=== PATIENT | male | born 1960 | race Hispanic/Latino ===

== ENCOUNTER → 2018-06-23 | Outpatient (CLI) | payer OTHER, MEDICARE ==
--- NOTE | 2018-06-23 12:23 | Diagnostic Imaging Report ---
Left Shoulder - 2 Views HISTORY: Left shoulder pain x2 months, clinical diagnosis of sprain of left coracohumeral ligament. COMPARISON: None FINDINGS: Bones No acute displaced fracture. There are old healed left posterolateral fifth and sixth rib fractures. Osseous alignment is within normal limits. Joints: There are mild left glenohumeral and acromioclavicular joint degenerative changes. Soft tissues: The soft tissues appear unremarkable. IMPRESSION: No acute radiographic abnormality. Mild left shoulder osteoarthritis. Signed by: Dr. Kelly Bolanos MD on 06/23/2018 12:20 PM
== END ==
LOC: RAD 11:18
PROVIDERS: ATTEND Internal Medicine
DX: S43.412A Sprain of left coracohumeral (ligament), initial encounter (principal)

== ENCOUNTER → 2018-07-07 | Outpatient (CLI) | payer OTHER, MEDICARE ==
[~2018-07-07] MED LIST: ASPIR 8181 MG PO; ATORVASTATIN CA20 MG PO; CLOPIDOGREL75 MG PO; FERROUS SULFAT325 MG PO; GLIPIZIDE5 MG PO; METOPROLOL SUCC25 MG PO; NIFEDICAL XL PO; VITAMIN B-121000 MC1 PO
--- NOTE | 2018-07-07 13:23 | Diagnostic Imaging Report ---
TECHNIQUE: Magnetic resonance imaging of the LEFT SHOULDER was performed WITHOUT injected contrast. HISTORY: INJURY OF MUSCLE TENDON , fell at work, landed on shoulder, limited motion, one year ago COMPARISON: Left shoulder radiographs June 23, 2018 FINDINGS: MUSCLES AND TENDONS: Rotator Cuff: Tendons: Supraspinatus and Infraspinatus: A small focal full-thickness tear of the anterior supraspinatus, without tendon retraction (series 5 image 8), adjacent to the greater tuberosity enthesophyte. The infraspinatus is intact. Teres Minor: Intact Subscapularis: Intact Muscles: No focal muscle atrophy. Biceps Tendon: The long head of the biceps tendon is within the intertubercular groove. Marked thickening, increased intrasubstance signal, and low-grade partial tearing of the intra-articular portion, most notably adjacent to the lesser tuberosity. GLENOHUMERAL JOINT: Glenoid Labrum: Mild complex tearing and attenuation of the superior labrum, including the biceps labral anchor. Articular Cartilage: Diffuse intermediate to high-grade erosion. Joint Fluid: No effusion. ACROMIOCLAVICULAR JOINT: Moderate hypertrophic degenerative changes of the acromioclavicular joint. Mild synovitis and trace effusion. BONE: The acromion is unremarkable. The bone marrow signal is heterogeneous, compatible with red marrow conversion, no specific evidence of a focal bone marrow replacing abnormality. No acute fracture. Small enthesophyte at the greater tuberosity of the humerus. SOFT TISSUES: Trace fluid within the subacromial/subdeltoid bursa, in keeping with full-thickness rotator cuff tear. Nonspecific subcentimeter axillary lymph nodes. IMPRESSION: 1. A small focal full-thickness tear involving the anterior supraspinatus tendon. 2. Severe tendinosis of the intra-articular long head of the biceps tendon, including degenerative tearing. 3. Mild degenerative tearing of the superior labrum including the biceps-labral anchor. 4. Moderate acromioclavicular and mild glenohumeral osteoarthrosis. Signed by: Pranav Bailey.Mirna., M.M.M. on 07/07/2018 1:20 PM
== END ==
LOC: MRI 09:05
PROVIDERS: ATTEND Internal Medicine
DX: S46.002D Unspecified injury of muscle(s) and tendon(s) of the rotator cuff of left shoulder, subsequent encounter (principal)

== ENCOUNTER → 2018-07-09 | Day surgery (SDC) | payer OTHER, MEDICARE ==
[~2018-07-09] MED LIST changes: +FENTANYL CITRATE/PF 100MCG/2 ML INJ ONE; +LIDOCAINE HCL 2% LOCAL INJ 5 ML SDV VIAL INJ ONE; +MIDAZOLAM HCL 2 MG/2 ML VIAL ONE; +PROPOFOL IV EMULSION 10 MG/ML 50 ML VIAL ONE; +SODIUM CHLORIDE 0.9% 500ML 500 ML ONE
--- OUTSIDE RECORDS SUMMARY | 2018-07-09 10:02 | XMS REPORT | Summary of Care ---
Author Author DUANE NEWELL M.D. Organization Unknown Address Unknown Phone Unavailable Care Team Providers Care Corporate Coordinator Name Role Phone DUANE NEWELL M.D. 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) Status: Active Medications Name Dates Details Aspirin 81 MG TABS Active Atorvastatin Calcium 40 MG Oral Tablet * Refills: 0 Active Clopidogrel Bisulfate 75 MG Oral Tablet * Refills: 0 Active Allergies and Adverse Reactions Name Dates Details No Known Allergies (Allergy) Status: Active Procedures Procedure Dates Details [facility] - Hemodialysis Access Duplex - 68929 Date: 11-May-2018 Immunization Name Dates Details Immunizations not documented Social History Name Dates Details Unknown if ever smoked Vital Signs Date Test Result Details [id number] BP Systolic 160 mm[Hg] Status: Comments: Location: E; Position: Sitting BP Diastolic 85 mm[Hg] Status: Comments: Location: [facility]; Position: Sitting Height 71 in Status: Weight 177.5 lb Status: Body Mass Index Calculated 24.76 kg/m2 Status: Body Surface Area Calculated 2 m2 Status: Temperature 97.8 f Status: Comments: Method: Oral Heart Rate 64 /min Status: O2 SAT 99 % Status: Results Date Description Value Details Results not documented Plan of Care Name Dates Details Planned Observations Planned Goals not documented Planned Encounters Appointment; DUANE NEWELL M.D. On: 20-Jul-2018 9:15 Instructions Name Dates Details Instructions not documented Encounters Appointment; [facility], [facility] Encounter Diagnosis: Problem not documented On: 13-Apr-2018 9:00 Appointment; DUANE NEWELL M.D. Encounter Diagnosis: Problem not documented On: 13-Apr-2018 13:30 Appointment; DUANE NEWELL M.D. Encounter Diagnosis: Problem not documented On: 11-May-2018 9:15 Appointment; [facility], [facility] Encounter Diagnosis: Problem not documented On: 11-May-2018 14:00 Appointment; DUANE NEWELL M.D. Encounter Diagnosis: Problem not documented On: 17-Jun-2018 9:00
--- OUTSIDE RECORDS SUMMARY | 2018-07-09 10:02 | XMS REPORT ---
Author Author [facility] Address Unknown Phone Unavailable Care Team Providers Care Claim Rep Name Role Phone Latricia GONZALEZ Unavailable Unavailable Payers Payer Name Policy Type Policy Number Effective Date Expiration Date Problems This patient has no known problems. Allergies, Adverse Reactions, Alerts Allergy Name Allergy Type Status Severity Reaction(s) Onset Date Inactive Date Treating Clinician Comments No Known Allergies DA Active U 2018-01-09 00:00:00 Medications This patient has no known medications. Results Test Description Test Time Test Comments Text Results Atomic Results Result Comments MRI SHOULDER LEFT WO 2018-07-07 13:03:00 [place] [address] Patient Name: KRISTI MEDRANO MR #: [id number] : 1960 Age/Sex: 57/M Req #: [id number] Adm Physician: Ordered by: SAL GONZALEZ MD Report #: [id number] Location: MRI Room/Bed: Procedure: [id number] MRI/MRI SHOULDER LEFT WO Exam Date: Exam Time: REPORT STATUS: Signed TECHNIQUE: Magnetic resonance imaging of the LEFT SHOULDER was pe rformed WITHOUT injected contrast. HISTORY: INJURY OF MUSCLE TENDON , fell at work, landed on shoulder, limited motion, one year ago COMPARISON: Left shoulder radiographs June 23, 2018 FINDINGS: MUSCLES AND TENDONS: Rotator Cuff: Tendons: Supraspinatus and Infraspinatus: A small focal full-thickness tear of the anterior supraspinatus, without tendon retraction (series 5 image 8), adjacent to the greater tuberosity enthesophyte. The infraspinatus is intact. Teres Minor: Intact Subscapularis: Intact Muscles: No focal muscle atrophy. Biceps Tendon: The long head of the biceps tendon is within the intertubercular groove. Marked thickening, increased intrasubstance signal, and low-grade partial tearing of the intra- articular portion, most notably adjacent to the lesser tuberosity. GLENOHUMERAL JOINT: Glenoid Labrum: Mild complex tearing and attenuation of the superior labrum, including the biceps labral anchor. Articular Cartilag e: Diffuse intermediate to high-grade erosion. Joint Fluid: No effusion. ACROMIOCLAVICULAR JOINT: Moderate hypertrophic degenerative changes of the acromioclavicular joint. Mild synovitis and trace effusion. BONE: The acromion is unremarkable. The bone marrow signal is heterogeneous, compatible with red marrow conversion, no specific evidence of a focal bone marrow replacing abnormality. No acute fracture. Small enthesophyte at the greater tuberosity of the humerus. SOFT TISSUES: Trace fluid within the subacromial/subdeltoid bursa, in keeping with full-thickness rotator cuff tear. Nonspecific subcentimeter axillary lymph nodes. IMPRESSION: 1. A small focal full-thickness tear involving the anterior supraspinatus tendon. 2. Severe tendinosis of the intra-articular long head of the biceps tendon, including degenerative tearing. 3. Mild degenerative tearing of the superior labrum including the biceps-labral anchor. 4. Moderate acromioclavicular and mild glenohumeral osteoarthrosis. Signed by: Dr. Cindy Abebe D.O., M.M.M. on 07/07/2018 1:20 PM Dictated By: CINDY ABEBE DO 1320 Transcribed By: RAMAKRISHNA on 07/07/18 1320 COPY TO: SAL GONZALEZ MD SHOULDER LEFT COMPLETE 2018-06-23 12:13:00 [place] [address] Patient Name: KRISTI MEDRANO MR #: [id number] : 1960 Age/Sex: 57/M Req #: [id number] Adm Physician: Ordered by: SAL GONZALEZ MD Report #: [id number] Location: [facility] Room/Bed: Procedure: [id number] DX/SHOULDER LEFT COMPLETE Exam Date: 06/23/18 Exam Time: 1130 REPORT STATUS: Signed Left Shoulder - 2 Views HISTORY: Left shoulder p ain x2 months, clinical diagnosis of sprain of left coracohumeral ligament. COMPARISON: None FINDINGS: Bones No acute displaced fracture. There are old healed left posterolateral fifth and sixth rib fractures. Osseous alignment is within normal limits. Joints: There are mild left glenohumeral and acromioclavicular joint degenerative changes. Soft tissues: The soft tissues appear unremarkable. IMPRESSION: No acute radiographic abnormality. Mild left shoulder osteoarthritis. Signed by: Dr. Joe Johnson MD on 06/23/2018 12:20 PM Dictated By: JOE JOHNSON MD 1220 Transcribed By: RAMAKRISHNA on 06/23/18 1220 COPY TO: SAL GONZALEZ MD
[2018-07-09 11:01] LABS: BASOPHILS % 0.3 % (0.0-1.0); EOSINOPHILS # (AUTO) 0.2 (0.0-0.4); EOSINOPHILS % 1.3 % (0.0-6.0); HEMATOCRIT 47.7 % (38.2-49.6); HEMOGLOBIN 15.3 g/dL (14.0-18.0); LYMPHOCYTES # (AUTO) 4.1 (1.0-3.2); LYMPHOCYTES % 32.2 % (18.0-39.1); MEAN CORPUSCULAR HEMOGLOBIN 31.7 pg (28-32); MEAN CORPUSCULAR HGB CONC 32.1 g/dL (31-35); MEAN CORPUSCULAR VOLUME 98.8 fL (81-99); MONOCYTES # (AUTO) 0.9 (0.2-0.8); MONOCYTES % 7.3 % (4.4-11.3); NEUTROPHILS # (AUTO) 7.4 (2.1-6.9); NEUTROPHILS % 58.5 % (38.7-80.0); PLATELET COUNT 368 x10e3/uL (140-360); RED BLOOD COUNT 4.83 x10e6/uL (4.3-5.7); RED CELL DISTRIBUTION WIDTH 14.4 % (11.7-14.4)
[2018-07-09 12:52] VITALS: BP 154/83
--- NOTE | 2018-07-09 22:00 | Operative Report ---
DATE OF PROCEDURE: 07/09/2018 SURGEON: Man Mendoza MD PROCEDURE: EGD with biopsies and colonoscopy. INDICATIONS FOR EGD: Dyspepsia. INDICATIONS FOR COLONOSCOPY: Colorectal cancer screening. MEDICATIONS: The patient was done under MAC, please see anesthesiologist's note. EGD PROCEDURE IN DETAIL: With the patient in the left lateral decubitus position, a flexible fiberoptic Olympus gastroscope was introduced into the esophagus under direct visualization without any difficulty. There was some patchy erythema noted in distal esophagus. The scope was then advanced with ease into the stomach. Mucosa overlying the antrum and the body revealed some patchy erythema and low-grade to moderate edema and biopsies were obtained, sent to stain for H pylori. The pylorus was of normal contour and shape, was intubated with ease and the scope was advanced all the way to the second portion of the duodenum. The scope was then withdrawn slowly, mucosa overlying the proximal second portion as well as the duodenal bulb appeared to be within normal limits. The scope was then withdrawn back into the stomach and retroflexed and mucosa overlying the fundus and cardia appeared to be within normal limits. The scope was then straightened out, it was subsequently withdrawn. The patient tolerated the procedure well. IMPRESSION: 1. Distal esophagitis, mild. 2. Gastritis, biopsied. Biopsies sent to stain for Helicobacter pylori. PLAN: Follow up histology. Initiate Protonix 40 mg one p.o. q.a.m. before meals. COLONOSCOPY PROCEDURE IN DETAIL: The patient was then turned around after adequate lubrication of the anal canal, flexible fiberoptic Olympus colonoscope was inserted into the rectum with ease and advanced all the way to the cecum. The scope was then withdrawn slowly. Mucosa overlying the cecum, ascending colon, transverse, descending, sigmoid, and rectum grossly appeared to be within normal limits. The scope was then retroflexed into the distal rectum and small internal hemorrhoids were noted, none of which was actively bleeding. The scope was then straightened out, it was subsequently withdrawn. The patient tolerated the procedure well. IMPRESSION: Internal hemorrhoids, none actively bleeding. PLAN: Initiate high-fiber low-fat diet. The patient might benefit from a followup colonoscopy in 10 years. Man Mendoza MD [facility] [place][id number] cc: Wes Wray MD
== END | disposition home or self-care (01) ==
LOC: OR 09:59
PROVIDERS: ATTEND Internal Medicine Gastroenterology
DX: Z12.11 Encounter for screening for malignant neoplasm of colon (principal); K29.50 Unspecified chronic gastritis without bleeding; K31.89 Other diseases of stomach and duodenum; K20.9 Esophagitis, unspecified; K59.09 Other constipation; K64.8 Other hemorrhoids; D50.8 Other iron deficiency anemias; E11.22 Type 2 diabetes mellitus with diabetic chronic kidney disease; I12.0 Hypertensive chronic kidney disease with stage 5 chronic kidney disease or end stage renal disease; N18.6 End stage renal disease; I25.810 Atherosclerosis of coronary artery bypass graft(s) without angina pectoris; I25.2 Old myocardial infarction; E78.6 Lipoprotein deficiency; Z01.810 Encounter for preprocedural cardiovascular examination; Z79.02 Long term (current) use of antithrombotics/antiplatelets; Z79.82 Long term (current) use of aspirin; Z79.84 Long term (current) use of oral hypoglycemic drugs; Z99.2 Dependence on renal dialysis; Z95.1 Presence of aortocoronary bypass graft
CPT/HCPCS: 36415; 43239; 45378; 82948; 84132; 85025; 88305; 88312; 93005; J2001; J2250; J2704; J7040

== ENCOUNTER → 2018-10-08 | Outpatient (CLI) | payer MEDICARE, OTHER ==
[~2018-10-08] MED LIST changes: -FENTANYL CITRATE/PF 100MCG/2 ML INJ ONE; -LIDOCAINE HCL 2% LOCAL INJ 5 ML SDV VIAL INJ ONE; -MIDAZOLAM HCL 2 MG/2 ML VIAL ONE; -PROPOFOL IV EMULSION 10 MG/ML 50 ML VIAL ONE; -SODIUM CHLORIDE 0.9% 500ML 500 ML ONE
--- NOTE | 2018-10-08 17:38 | Diagnostic Imaging Report ---
Chest, 2 views, Left rib series, Sternal series, 10/08/2018. History: Left-sided soft tissue swelling. Comparison: None available. Findings: The cardiomediastinal silhouette and pulmonary vasculature are within normal limits. The lungs are clear without evidence of consolidation or pleural effusion. Multiple bilateral old rib fractures are present. Median sternotomy wires are present in the sternum. Sternum is otherwise unremarkable. There are no acute osseous or soft tissue abnormalities. Impression: No acute cardiopulmonary abnormality. No acute osseous abnormality. Signed by: Jd Babb on 10/08/2018 5:34 PM
== END ==
LOC: RAD 16:37
PROVIDERS: ATTEND Internal Medicine
DX: R07.89 Other chest pain (principal); M94.0 Chondrocostal junction syndrome [Tietze]
CPT/HCPCS: 71046; 71101; 71120

== ENCOUNTER → 2022-01-11 | Outpatient (CLI) | payer MEDICARE, OTHER | LOC: RAD 13:13 | PROVIDERS: ATTEND Internal Medicine | DX: M19.072 Primary osteoarthritis, left ankle and foot (principal); M19.071 Primary osteoarthritis, right ankle and foot ==

== ENCOUNTER → 2022-02-11 | Outpatient (CLI) | payer MEDICARE | LOC: RAD 12:19 | PROVIDERS: ATTEND Internal Medicine | DX: M54.50 Low back pain, unspecified (principal) | CPT/HCPCS: 72110 ==